=== PATIENT | female | born 1940 | race Caucasian/White ===

== ENCOUNTER 2016-09-24 05:53 | Day surgery (SDC) | payer MEDICARE, BC ==
[~2016-09-24] VITALS: Ht 144.8 cm; Wt 77.2 kg
[2016-09-24] VITALS (14 sets, daily range): BP systolic 81–147; BP diastolic 33–90; PULSE 80–94; TEMP 97.8
[2016-09-24 06:46] LABS: MEAN CELL VOLUME 93 fl (80.0-100.0); MEAN CORPUSCULAR HGB CONC 32 g/dl (33.0-37.0); MEAN PLATELET VOLUME 8.6 fl (7.4-10.4); PLATELET COUNT 337 K/mm3 (130-400); RED BLOOD COUNT 3.44 M/mm3 (4.10-5.30); REDCELL DISTRIBUTION WIDTH-CV 14.2 % (11.5-14.5); WHITE BLOOD COUNT 9.2 K/mm3 (4.8-10.8)
[2016-09-24 06:57] LABS: CREATININE, serum 1.02 mg/dL (0.52-1.25)
[2016-09-24 07:03] LABS: HEMATOCRIT 32.1 % (37.0-47.0); HEMOGLOBIN 10.3 g/dl (12.5-16.0); MEAN CORPUSCULAR HEMOGLOBIN 30 pg (27.0-31.0)
[2016-09-24 07:08] LABS: INR 0.9 (0.8-3.0); PROTHROMBIN TIME 10.2 SECONDS (9.7-12.8)
[2016-09-24] MEDS ORDERED: REQUIP 0.5MG0.5 MG PO (07:26)
[2016-09-24] MEDS ORDERED: NORCO 325 MG-51 TAB PO (07:27)
[2016-09-24] MEDS ORDERED: LANTUS SOLOS100 U/ML SQ (07:27)
[2016-09-24] MEDS ORDERED: COZAAR100 MG PO (07:28)
[2016-09-24] MEDS ORDERED: SYNTHROID0.112 MG/T PO (07:28)
[2016-09-24] MEDS ORDERED: GLUCOPHAGE1000 MG PO (07:29)
[2016-09-24] MEDS ORDERED: HUMALOG PEN100 U/ML SQ (07:29)
[2016-09-24] MEDS ORDERED: LASIX 40MG TABL40 MG PO (07:30)
[2016-09-24] MEDS ORDERED: PROCARDIA XL 3030 MG PO (07:30)
[2016-09-24] MEDS ORDERED: LIPITOR 40MG TA40 MG PO (07:31)
[2016-09-24] MEDS ORDERED: LOPRESSOR 550 MG/TAB PO (07:31)
[2016-09-24] MEDS ORDERED: CO Q-1010 M1 PO (07:32)
[2016-09-24] MEDS ORDERED: FOLIC ACID 11 MG/TA1 PO (07:32)
[2016-09-24] MEDS ORDERED: MAG-OX 400400 MG/TAB PO (07:33)
[2016-09-24] MEDS ORDERED: CLARITIN 1010 MG/TAB PO (07:35)
[2016-09-24] MEDS ORDERED: GLUCOSAMIN 500 PO (07:35)
[2016-09-24] MEDS ORDERED: VITAMIN D32000 I1 PO (07:36)
[2016-09-24] MEDS ORDERED: ASPIRIN 32325 MG/TAB PO (07:36)
[2016-09-24] MEDS ORDERED: COMPLETE SENIOR1 TA1 PO (07:36)
[2016-09-24] MEDS ORDERED: PLAVIX 75MG TAB75 MG PO (17:30)
== END 2016-09-24 19:00 | disposition home or self-care (01) ==
LOC: EUO 05:53 → COL.RAD 06:00 → EUO 19:00
PROVIDERS: Radiology Diagnostic Radiology
DX: I77.1 Stricture of artery (principal); M79.661 Pain in right lower leg; M25.561 Pain in right knee; M79.651 Pain in right thigh; I73.9 Peripheral vascular disease, unspecified; I25.10 Atherosclerotic heart disease of native coronary artery without angina pectoris; E11.9 Type 2 diabetes mellitus without complications; Z79.4 Long term (current) use of insulin; Z79.84 Long term (current) use of oral hypoglycemic drugs; I10 Essential (primary) hypertension; E03.9 Hypothyroidism, unspecified; E78.5 Hyperlipidemia, unspecified; G25.81 Restless legs syndrome; G45.1 Carotid artery syndrome (hemispheric)
CPT/HCPCS: C1725; C1769; C1876; C1894; J1644; J2250; J3010; J7120; Q9967

== ENCOUNTER 2016-11-04 06:14 | Day surgery (SDC) | payer MEDICARE, BC ==
[~2016-11-04] VITALS: Ht 149.9 cm; Wt 77.2 kg
[2016-11-04] VITALS (12 sets, daily range): BP systolic 86–171; BP diastolic 38–90; PULSE 66–92; TEMP 97.4
[~2016-11-04 06:14] MED LIST: ASPIRIN 32325 MG/TAB PO; CLARITIN 1010 MG/TAB PO; CO Q-1010 M1 PO; COMPLETE SENIOR1 TA1 PO; COZAAR100 MG PO; FOLIC ACID 11 MG/TA1 PO; GLUCOPHAGE1000 MG PO; GLUCOSAMIN 500 PO; HUMALOG PEN100 U/ML SQ; LANTUS SOLOS100 U/ML SQ; LASIX 40MG TABL40 MG PO; LIPITOR 40MG TA40 MG PO; LOPRESSOR 550 MG/TAB PO; MAG-OX 400400 MG/TAB PO; NORCO 325 MG-51 TAB PO; PLAVIX 75MG TAB75 MG PO; PROCARDIA XL 3030 MG PO; REQUIP 0.5MG0.5 MG PO; SYNTHROID0.112 MG/T PO; VITAMIN D32000 I1 PO
[2016-11-04 07:09] LABS: HEMATOCRIT 37.8 % (37.0-47.0); MEAN CELL VOLUME 92 fl (80.0-100.0); MEAN CORPUSCULAR HEMOGLOBIN 29 pg (27.0-31.0); MEAN CORPUSCULAR HGB CONC 32 g/dl (33.0-37.0); MEAN PLATELET VOLUME 8.4 fl (7.4-10.4); PLATELET COUNT 317 K/mm3 (130-400); REDCELL DISTRIBUTION WIDTH-CV 14.7 % (11.5-14.5); WHITE BLOOD COUNT 7.1 K/mm3 (4.8-10.8)
[2016-11-04 07:14] LABS: PROTHROMBIN TIME 10.9 SECONDS (9.7-12.8)
[2016-11-04 07:26] LABS: CREATININE, serum 0.97 mg/dL (0.52-1.25)
[2016-11-04] MEDS ORDERED: KLOR-CON 1010 MEQ PO (07:51)
== END 2016-11-04 17:15 | disposition home or self-care (01) ==
LOC: COL.CAR 06:14
PROVIDERS: Radiology Diagnostic Radiology
DX: I74.3 Embolism and thrombosis of arteries of the lower extremities (principal); I70.212 Atherosclerosis of native arteries of extremities with intermittent claudication, left leg; I25.10 Atherosclerotic heart disease of native coronary artery without angina pectoris; E11.9 Type 2 diabetes mellitus without complications; Z79.4 Long term (current) use of insulin; Z79.84 Long term (current) use of oral hypoglycemic drugs; I10 Essential (primary) hypertension; E03.9 Hypothyroidism, unspecified; Z95.5 Presence of coronary angioplasty implant and graft; G25.81 Restless legs syndrome; E78.5 Hyperlipidemia, unspecified; M25.50 Pain in unspecified joint; Z87.891 Personal history of nicotine dependence
CPT/HCPCS: C1724; C1725; C1769; C1876; C1894; J0360; J1644; J2250; J3010; J7120

== ENCOUNTER 2017-12-27 14:06 | Inpatient (IN) | payer MEDICARE, BC ==
[~2017-12-27] VITALS: Ht 149.9 cm; Wt 72.8 kg
[2017-12-27] VITALS (326 sets, daily range): BP systolic 56–191; BP diastolic 21–188; PULSE 107–128; TEMP 97.2–100.2; O2SAT 87–100
[~2017-12-27 14:06] MED LIST changes: +KLOR-CON 1010 MEQ PO
[2017-12-27 18:57] LABS: ARTERIAL BLD GAS O2 SATURATION 91.3 % (92-100); ARTERIAL BLD GAS TCO2 CT 20.4; ARTERIAL BLOOD GAS BASE EXCESS -3.7 (-2-2); ARTERIAL BLOOD GAS HCO3 19.6 meq/L (22-26); ARTERIAL BLOOD GAS PCO2 27.9 mmHg (35-45); ARTERIAL BLOOD GAS PO2 64.2 mmHg (80-100); ARTERIAL BLOOD GAS pH 7.46 (7.35-7.45)
[2017-12-27 20:27] LABS: INR 1.2 (0.8-3.0); PROTHROMBIN TIME 13.1 SECONDS (9.7-12.8)
[2017-12-27 20:35] LABS: MAGNESIUM 1.8 mg/dL (1.6-2.3); PHOSPHOROUS 3.8 mg/dL (2.5-4.5); POTASSIUM 3.5 mmol/L (3.4-5.0)
[2017-12-27 20:49] LABS: TROPONIN-I 0.072 ng/mL (0.000-0.034)
[2017-12-27 23:23] LABS: MAGNESIUM 1.7 mg/dL (1.6-2.3); PHOSPHOROUS 3.7 mg/dL (2.5-4.5)
[2017-12-28] VITALS (1119 sets, daily range): BP systolic 61–143; BP diastolic 36–75; PULSE 73–122; TEMP 96.8–97.6; O2SAT 80–100
[2017-12-28 02:22] LABS: MAGNESIUM 1.7 mg/dL (1.6-2.3); PHOSPHOROUS 2.7 mg/dL (2.5-4.5)
[2017-12-28 02:25] LABS: POTASSIUM 2.6 mmol/L (3.4-5.0)
[2017-12-28 04:54] LABS: ARTERIAL BLD GAS O2 SATURATION 91.9 % (92-100); ARTERIAL BLD GAS TCO2 CT 22.9; ARTERIAL BLOOD GAS BASE EXCESS -1.4 (-2-2); ARTERIAL BLOOD GAS HCO3 21.9 meq/L (22-26); ARTERIAL BLOOD GAS PCO2 31.2 mmHg (35-45); ARTERIAL BLOOD GAS pH 7.47 (7.35-7.45)
[2017-12-28 05:58] LABS: INR 1.2 (0.8-3.0); PROTHROMBIN TIME 13.6 SECONDS (9.7-12.8)
[2017-12-28 09:56] LABS: MAGNESIUM 2.1 mg/dL (1.6-2.3); PHOSPHOROUS 2.4 mg/dL (2.5-4.5); POTASSIUM 3.2 mmol/L (3.4-5.0)
[2017-12-28 10:23] LABS: ARTERIAL BLD GAS O2 SATURATION 97.4 % (92-100); ARTERIAL BLD GAS TCO2 CT 24.1; ARTERIAL BLOOD GAS BASE EXCESS -2.4 (-2-2); ARTERIAL BLOOD GAS HCO3 22.8 meq/L (22-26); ARTERIAL BLOOD GAS PCO2 40.9 mmHg (35-45); ARTERIAL BLOOD GAS PO2 118.4 mmHg (80-100); ARTERIAL BLOOD GAS pH 7.36 (7.35-7.45)
[2017-12-28 20:12] LABS: ARTERIAL BLD GAS O2 SATURATION 97.9 % (92-100); ARTERIAL BLD GAS TCO2 CT 19.7; ARTERIAL BLOOD GAS BASE EXCESS -5.8 (-2-2); ARTERIAL BLOOD GAS HCO3 18.7 meq/L (22-26); ARTERIAL BLOOD GAS PCO2 32.5 mmHg (35-45); ARTERIAL BLOOD GAS PO2 139.4 mmHg (80-100); ARTERIAL BLOOD GAS pH 7.38 (7.35-7.45)
[2017-12-29] VITALS (1155 sets, daily range): BP systolic 90–121; BP diastolic 48–82; PULSE 74–107; TEMP 97.1–97.9; O2SAT 63–100
[2017-12-29 06:12] LABS: ARTERIAL BLD GAS O2 SATURATION 93.2 % (92-100); ARTERIAL BLD GAS TCO2 CT 21.1; ARTERIAL BLOOD GAS BASE EXCESS -4.1 (-2-2); ARTERIAL BLOOD GAS HCO3 20.1 meq/L (22-26); ARTERIAL BLOOD GAS PCO2 32.6 mmHg (35-45); ARTERIAL BLOOD GAS PO2 74.8 mmHg (80-100); ARTERIAL BLOOD GAS pH 7.41 (7.35-7.45)
[2017-12-29 06:24] LABS: INR 1.1 (0.8-3.0); PROTHROMBIN TIME 12.7 SECONDS (9.7-12.8)
[2017-12-29 20:29] LABS: MAGNESIUM 2.6 mg/dL (1.6-2.3); PHOSPHOROUS 3.7 mg/dL (2.5-4.5); POTASSIUM 4.5 mmol/L (3.4-5.0)
[2017-12-30] VITALS (793 sets, daily range): BP systolic 122–147; BP diastolic 65–81; PULSE 91–113; TEMP 97.2–98.8; O2SAT 80–100
[2017-12-30 05:24] LABS: ARTERIAL BLD GAS O2 SATURATION 89.4 % (92-100); ARTERIAL BLD GAS TCO2 CT 19.6; ARTERIAL BLOOD GAS BASE EXCESS -5.6 (-2-2); ARTERIAL BLOOD GAS HCO3 18.6 meq/L (22-26); ARTERIAL BLOOD GAS PCO2 31.7 mmHg (35-45); ARTERIAL BLOOD GAS PO2 59.3 mmHg (80-100); ARTERIAL BLOOD GAS pH 7.39 (7.35-7.45)
[2017-12-30 05:36] LABS: INR 1.1 (0.8-3.0)
[2017-12-31] VITALS (335 sets, daily range): BP systolic 121–162; BP diastolic 59–92; PULSE 88–122; TEMP 97.3–100.5; O2SAT 91–100
[2018-01-01] VITALS (957 sets, daily range): BP systolic 85–146; BP diastolic 54–92; PULSE 88–112; TEMP 98–98.6; O2SAT 87–100
[2018-01-02] VITALS (1145 sets, daily range): BP systolic 107–136; BP diastolic 64–88; PULSE 78–94; TEMP 98.1–98.9; O2SAT 88–100
[2018-01-02 04:55] LABS: ARTERIAL BLD GAS O2 SATURATION 93.7 % (92-100); ARTERIAL BLD GAS TCO2 CT 27.3; ARTERIAL BLOOD GAS BASE EXCESS 2.6 (-2-2); ARTERIAL BLOOD GAS HCO3 26.2 meq/L (22-26); ARTERIAL BLOOD GAS PCO2 36.1 mmHg (35-45); ARTERIAL BLOOD GAS PO2 66.6 mmHg (80-100); ARTERIAL BLOOD GAS pH 7.48 (7.35-7.45)
[2018-01-02 06:17] LABS: MEAN CELL VOLUME 89 fl (80.0-100.0); MEAN CORPUSCULAR HGB CONC 32 g/dl (33.0-37.0); MEAN PLATELET VOLUME 8.9 fl (7.4-10.4); PLATELET COUNT 398 K/mm3 (130-400); RED BLOOD COUNT 3.14 M/mm3 (4.10-5.30); REDCELL DISTRIBUTION WIDTH-CV 14.7 % (11.5-14.5)
[2018-01-02 06:38] LABS: HEMOGLOBIN 8.9 g/dl (12.5-16.0); MEAN CORPUSCULAR HEMOGLOBIN 28 pg (27.0-31.0)
[2018-01-02 06:44] LABS: CALCIUM 8.7 mg/dL (8.4-10.2); CREATININE, serum 1.44 mg/dL (0.52-1.25); MAGNESIUM 2.5 mg/dL (1.6-2.3); POTASSIUM 3.4 mmol/L (3.4-5.0)
[2018-01-02 08:56] LABS: ARTERIAL BLD GAS O2 SATURATION 94.9 % (92-100); ARTERIAL BLD GAS TCO2 CT 28.7; ARTERIAL BLOOD GAS BASE EXCESS 3.7 (-2-2); ARTERIAL BLOOD GAS HCO3 27.5 meq/L (22-26); ARTERIAL BLOOD GAS PCO2 38.2 mmHg (35-45); ARTERIAL BLOOD GAS PO2 75.9 mmHg (80-100); ARTERIAL BLOOD GAS pH 7.48 (7.35-7.45)
[2018-01-02 11:16] LABS: BAND 2 % (0-10); LYMPHOCYTE 3 % (20.0-51.0); NEUTROPHILS 90 % (42.0-75.2)
[2018-01-02 11:19] LABS: PLATELET ESTIMATE NORMAL (NORMAL); TOXIC GRANULATION PRESENT
[2018-01-03] VITALS (486 sets, daily range): BP systolic 118–146; BP diastolic 65–71; PULSE 77–92; TEMP 97.9–99.5; O2SAT 76–100
[2018-01-03 06:18] LABS: ALBUMIN 2.8 gm/dL (3.5-5.0); BILIRUBIN,TOTAL 0.3 mg/dL (0.0-1.0); CALCIUM 8.6 mg/dL (8.4-10.2); CREATININE, serum 1.38 mg/dL (0.52-1.25); MAGNESIUM 2.7 mg/dL (1.6-2.3); PHOSPHOROUS 4.5 mg/dL (2.5-4.5); POTASSIUM 4.5 mmol/L (3.4-5.0); TOTAL PROTEIN 5.7 gm/dL (6.4-8.2)
[2018-01-03 06:24] LABS: PRE ALBUMIN 45.7 mg/dL (17.6-36.0)
[2018-01-03 07:49] LABS: HEMOGLOBIN 8.6 g/dl (12.5-16.0); MEAN CELL VOLUME 91 fl (80.0-100.0); MEAN CORPUSCULAR HEMOGLOBIN 28 pg (27.0-31.0); MEAN CORPUSCULAR HGB CONC 31 g/dl (33.0-37.0); MEAN PLATELET VOLUME 9.5 fl (7.4-10.4); PLATELET COUNT 401 K/mm3 (130-400); RED BLOOD COUNT 3.05 M/mm3 (4.10-5.30); REDCELL DISTRIBUTION WIDTH-CV 14.7 % (11.5-14.5)
[2018-01-03 07:50] LABS: HEMATOCRIT 27.7 % (37.0-47.0)
[2018-01-03 08:53] LABS: PATHOLOGY DIFF REVIEW OK
[2018-01-03 09:09] LABS: BAND 1 % (0-10); LYMPHOCYTE 6 % (20.0-51.0); NEUTROPHILS 92 % (42.0-75.2); PLATELET ESTIMATE INCREASED (NORMAL); TOXIC GRANULATION PRESENT
== END 2018-01-04 23:05 | disposition expired | DRG 870 ==
LOC: ICU 14:06
PROVIDERS: Internal Medicine Critical Care Medicine; Internal Medicine Pulmonary Disease
PROC: 0BH18EZ Insertion of Endotracheal Airway into Trachea, Via Natural or Artificial Opening Endoscopic (ICD-10-PCS; principal; 2017-12-28)
PROC: 5A1955Z Respiratory Ventilation, Greater than 96 Consecutive Hours (ICD-10-PCS; 2017-12-28)
PROC: 5A2204Z Restoration of Cardiac Rhythm, Single (ICD-10-PCS; 2018-01-01)
DX: A41.9 Sepsis, unspecified organism (principal); R65.21 Severe sepsis with septic shock; J18.9 Pneumonia, unspecified organism; J96.01 Acute respiratory failure with hypoxia; Z66 Do not resuscitate; Z51.5 Encounter for palliative care; I21.4 Non-ST elevation (NSTEMI) myocardial infarction; J44.0 Chronic obstructive pulmonary disease with (acute) lower respiratory infection; J44.1 Chronic obstructive pulmonary disease with (acute) exacerbation; N17.9 Acute kidney failure, unspecified; E87.3 Alkalosis; I25.10 Atherosclerotic heart disease of native coronary artery without angina pectoris; J84.10 Pulmonary fibrosis, unspecified; E11.65 Type 2 diabetes mellitus with hyperglycemia; Z79.4 Long term (current) use of insulin; F17.210 Nicotine dependence, cigarettes, uncomplicated; I48.91 Unspecified atrial fibrillation; D64.9 Anemia, unspecified; I27.22 Pulmonary hypertension due to left heart disease; I08.0 Rheumatic disorders of both mitral and aortic valves
CPT/HCPCS: 99233-AI; C1751; J0282; J0696; J1650; J1815; J1940; J1956; J2060; J2270; J2370; J2704; J2920; J2930; J3010; J3370; J3475; J3480; J7030; J7050; J7060; P9016